=== PATIENT | male | born 1960 | race Caucasian/White ===

== ENCOUNTER 2019-05-17 17:17 | Outpatient (CLI) | payer OTHER, SELFPAY ==
[2019-05-17 17:42] LABS: Alanine Aminotransferase 35 U/L (4-50); Albumin Level 4.6 g/dL (3.5-5.1); Alkaline Phosphatase 68 U/L (38-126); Aspartate Amino Transferase 34 U/L (17-59); Bilirubin,Total 0.3 mg/dL (0.2-1.3); Blood Urea Nitrogen 17 mg/dL (9-20); Calcium 9.6 mg/dL (8.4-10.2); Carbon Dioxide 31 mmol/L (22-30); Chloride 100 mmol/L (98-107); Cholesterol 157 mg/dL (0-200); Estimated Glomerular Filt Rate > 60; Glucose 94 mg/dL (75-110); HDL Direct 31 mg/dL; Potassium 4.1 mmol/L (3.4-5.0); Sodium 140 mmol/L (137-145); Triglycerides 343 mg/dL (<150)
[2019-05-17 17:53] LABS: LDL Cholesterol Direct 84 mg/dL
== END 2019-05-17 17:18 | disposition home or self-care (01) ==
LOC: ANHLAB 17:19
PROVIDERS: PCP Family Medicine; Visit Provider Family Medicine
DX: E78.5 Hyperlipidemia, unspecified (principal)
CPT/HCPCS: 36415; 80053; 80061

== ENCOUNTER 2020-09-21 07:07 | Outpatient (CLI) | payer OTHER, SELFPAY ==
[2020-09-21 07:51] LABS: Basophils Absolute Auto 0.1 K/mm3 (0.0-0.1); Basophils Percent Auto 0.7 % (0.2-1.2); Eosinophils Absolute Auto 0.2 K/mm3 (0-0.3); Eosinophils Percent Auto 2.5 % (0-4.4); Hematocrit 40.8 % (42.0-52.0); Hemoglobin 13.8 g/dL (14.0-18.0); Immature Granulocyte Absolute 0.14 K/mm3 (0.00-0.031); Immature Granulocyte Percent A 1.7 % (0-0.5); Lymphocytes Absolute Auto 1.85 K/mm3 (0.9-3.2); Lymphocytes Percent Auto 22.2 % (18.3-44.2); Mean Corpuscular HGB Conc 33.8 g/dl (32-36); Mean Corpuscular Hemoglobin 31.1 pg (26-34); Mean Corpuscular Volume 91.9 fl (80-100); Mean Platelet Volume 11.6 fl (7.4-10.4); Monocytes Absolute Auto 0.8 K/mm3 (0.1-0.6); Monocytes Percent Auto 9.6 % (2.6-8.5); Neutrophils Absolute Auto 5.3 K/mm3 (1.3-6.7); Neutrophils Percent Auto 63.3 % (45.5-73.1); Platelet Count Result 222 k/mm3 (150-375); Red Blood Count 4.44 M/mm3 (4.6-6.20); Red Cell Distribution Width 12.1 % (11.5-14.5); White Blood Count 8.3 K/mm3 (4.5-10.0)
[2020-09-21 08:00] LABS: Alanine Aminotransferase 27 U/L (4-50); Albumin Level 4.4 g/dL (3.5-5.1); Alkaline Phosphatase 46 U/L (38-126); Anion Gap 11 mmol/L (8-16); Aspartate Amino Transferase 30 U/L (17-59); Bilirubin,Total 0.3 mg/dL (0.2-1.3); Blood Urea Nitrogen 16 mg/dL (9-20); Calcium 9.4 mg/dL (8.4-10.2); Carbon Dioxide 23 mmol/L (22-30); Chloride 107 mmol/L (98-107); Cholesterol 196 mg/dL (0-200); Estimated Glomerular Filt Rate > 60; Glucose 100 mg/dL (75-110); HDL Direct 33 mg/dL; Potassium 3.9 mmol/L (3.4-5.0); Sodium 141 mmol/L (137-145); Triglycerides 174 mg/dL (<150)
[2020-09-21 08:12] LABS: LDL Cholesterol Direct 107 mg/dL
[2020-09-21 08:32] LABS: Prostate Specific Antigen 0.9 ng/mL (< OR = 4.0)
== END 2020-09-21 07:08 | disposition home or self-care (01) ==
LOC: ANHLAB 07:12
PROVIDERS: PCP Family Medicine; Visit Provider Nurse Practitioner Family
DX: E78.5 Hyperlipidemia, unspecified (principal); Z12.5 Encounter for screening for malignant neoplasm of prostate
CPT/HCPCS: 36415; 80053; 80061; 84153; 85025; G0103

== ENCOUNTER 2021-02-11 01:30 | Day surgery (SDC) | payer OTHER, SELFPAY ==
[2021-01-28 14:32] VITALS: BMI 24.6
[2021-02-11 07:47] VITALS: BP 127/71; PULSE 60; RESP 18; TEMP 36.8; O2SAT 99
--- NOTE | 2021-02-11 07:56 | P.CONGI_ITS ---
Assessment and Plan Assessment and plan (1) Family history of colonic polyps: Code(s): Z83.71 - Family history of colonic polyps Status: Acute Assessment and Plan: Neoplasia screening advised because of patient's age. It is also significant his sister has been identified as having colon polyps. Screening colonoscopy to be performed today. Further recommendations will be given after endoscopy. GI Consult Note Consult date/time: 02/11/21 07:56 HPI: Sim Bhakta is a 60 year old male Presents for screening colonoscopy. Patient reports his current weight appetite bowel movements are normal. He denies abdominal pain. He has had no bleeding. Family history Is significant his sister was recently identified with colon polyps.. His last colonoscopy was more than 10 years ago. He presents today for neoplasia screening colonoscopy. Review of Systems Review of Systems: All systems reviewed & are unremarkable except as noted in HPI and below PMFSH Past Medical History Medical History Anxiety disorder, unspecified (~2018) Callus of foot (~2018) HLD (hyperlipidemia) (~2014) Wart (~2018) Surgical History Surgical History History of skin surgery S/P inguinal hernia repair (~1984) Social History Social History Smoking status: Never smoker Alcohol intake: current Alcohol use details: States that he may have a few beers q once in a while, but does not drink nightly Substance use: never Substance use type: marijuana Other substance usage details: recreational marijuana use on weekends Living arrangements: with friend(s) Additional living arrangements comments: lives with significant other Anita 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[employer]) Gender identity (if verbalized by the patient): Male Spiritual care concerns: No Agree to blood products: Yes Meds Home Medications and Allergies Home Medications Medication Instructions Recorded Confirmed Type atorvastatin 10 mg tablet 10 mg PO DAILY #90 tablet 09/24/20 01/31/21 Rx fenofibrate nanocrystallized 145 145 mg PO DAILY #90 tablet 09/24/20 01/31/21 Rx mg tablet hydroxyzine HCl 10 mg tablet 20 mg PO QHS PRN #30 tablet 10/24/20 01/31/21 Rx omeprazole magnesium [Prilosec OTC] 20 mg PO DAILY 01/28/21 01/31/21 History methylprednisolone 4 mg tablets in See Rx Instructions PO PER PKG DIR 01/31/21 01/31/21 Rx a dose pack #21 ea Allergies Allergy/AdvReac Type Severity Reaction Status Date / Time No Known Allergies Allergy Mild Verified 02/11/21 07:46 Vital Signs Vital Signs - 24 hr 02/11/21 07:47 Temperature 98.3 F Pulse Rate 60 Respiratory Rate 18 Blood Pressure 127/71 Pulse Oximetry 99 Exam Narrative: Physical exam reveals patient be alert. Vital signs stable. HEENT exam is unremarkable. Patient is anicteric. Lungs are clear to auscultation and percussion. Heart is without murmur or extra sounds. Abdominal exam bowel sounds are present soft nontender with no organomegaly. Digital external rectal exam is normal.
[2021-02-11] MEDS: LACTATED RINGERS 1,000 ML 150 ML IV CONT (07:58)
--- NOTE | 2021-02-11 08:26 | P.PNAN_ITS ---
Anes - Initial Pre Proc Eval Procedure: Operation Date: 02/11/21 08:30 Proposed Procedures p Screening Colonoscopy - David Guevara MD Date/Time: 02/11/21 08:26 Surgeon: David Guevara MD Pre Op Diagnosis: neoplasm screening Z12.11 Patient Data Age: 60 Gender: M Height: 1.78 m Weight: 75.3 kg Last Vital Signs Temp 98.3 F 02/11/21 07:47 Pulse 60 02/11/21 07:47 Resp 18 02/11/21 07:47 BP 127/71 02/11/21 07:47 Pulse Ox 99 02/11/21 07:47 Allergies Allergy/AdvReac Type Severity Reaction Status Date / Time No Known Allergies Allergy Mild Verified 02/11/21 07:46 Home Medications Medication Instructions Recorded Confirmed Type atorvastatin 10 mg tablet 10 mg PO DAILY #90 tablet 09/24/20 01/31/21 Rx fenofibrate nanocrystallized 145 145 mg PO DAILY #90 tablet 09/24/20 01/31/21 Rx mg tablet hydroxyzine HCl 10 mg tablet 20 mg PO QHS PRN #30 tablet 10/24/20 01/31/21 Rx omeprazole magnesium [Prilosec OTC] 20 mg PO DAILY 01/28/21 01/31/21 History methylprednisolone 4 mg tablets in See Rx Instructions PO PER PKG DIR 01/31/21 01/31/21 Rx a dose pack #21 ea Patient hx anesthesia problems: none Family hx anesthesia problems: none Results Review: All pre-operative results and documents have been reviewed as part of the pre-operative evaluation. [facility] Past Medical History Medical History Anxiety disorder, unspecified (~2018) Callus of foot (~2018) HLD (hyperlipidemia) (~2014) Wart (~2018) Surgical History Surgical History History of skin surgery S/P inguinal hernia repair (~1984) Social History Social History Smoking status: Never smoker Alcohol intake: current Alcohol use details: States that he may have a few beers q once in a while, but does not drink nightly Substance use: never Substance use type: marijuana Other substance usage details: recreational marijuana use on weekends Living arrangements: with friend(s) Additional living arrangements comments: lives with significant other Anita 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[employer]) Gender identity (if verbalized by the patient): Male Spiritual care concerns: No Agree to blood products: Yes Anes - Eval Final PreProcedure Day of Procedure 02/11/21 08:26 Patient weight: normal Heart: regular rate and rhythm Lungs: clear to auscultation Airway: Mallampati scale class II Neurological: alert and oriented Last oral intake: >/= 8 hours ASA classification: II Emergent: no Anesthetic plan: proceed Anesthesia type and monitoring: general GIVS and standard monitoring Results Review: All pre-operative results and documents have been reviewed as part of the pre-operative evaluation. Informed Consent: The patient's anesthetic plan and its attendant risks and benefits were discussed with the patient/family/POA. Questions were solicited and answers provided to the satisfaction of the patient/family/POA.
[2021-02-11 08:57] VITALS: BP 140/60; PULSE 58; RESP 20; O2SAT 99
[2021-02-11 09:07] VITALS: BP 130/73; PULSE 58; RESP 16; O2SAT 99
[2021-02-11 09:17] VITALS: BP 152/87; PULSE 61; RESP 14; O2SAT 99
== END 2021-02-11 09:25 | disposition home or self-care (01) ==
PROVIDERS: PCP Family Medicine; Visit Provider Internal Medicine Gastroenterology
PROC: 0DJD8ZZ Inspection of Lower Intestinal Tract, Via Natural or Artificial Opening Endoscopic (ICD-10-PCS; CPT 45378; principal; 2021-02-11 08:30)
DX: Z12.11 Encounter for screening for malignant neoplasm of colon (principal); K64.8 Other hemorrhoids; K57.30 Diverticulosis of large intestine without perforation or abscess without bleeding; K63.5 Polyp of colon; F41.9 Anxiety disorder, unspecified; E78.5 Hyperlipidemia, unspecified; F12.90 Cannabis use, unspecified, uncomplicated
CPT/HCPCS: 45385; 88305; J2704; J7120

== ENCOUNTER 2023-12-07 11:43 | Outpatient (CLI) | payer OTHER, SELFPAY ==
[2023-12-07 12:10] LABS: Basophils Absolute Auto 0.1 K/mm3 (0.0-0.1); Basophils Percent Auto 0.5 % (0.2-1.2); Eosinophils Absolute Auto 0.1 K/mm3 (0-0.3); Eosinophils Percent Auto 1.2 % (0-4.4); Hematocrit 40.4 % (42.0-52.0); Hemoglobin 14.2 g/dL (14.0-18.0); Immature Granulocyte Absolute 0.11 K/mm3 (0.00-0.031); Immature Granulocyte Percent A 1.1 % (0-0.5); Lymphocytes Absolute Auto 2.38 K/mm3 (0.9-3.2); Lymphocytes Percent Auto 23.2 % (18.3-44.2); Mean Corpuscular HGB Conc 35.1 g/dl (32-36); Mean Corpuscular Hemoglobin 31.8 pg (26-34); Mean Corpuscular Volume 90.4 fl (80-100); Mean Platelet Volume 11.6 fl (7.4-10.4); Monocytes Percent Auto 9.8 % (2.6-8.5); Neutrophils Absolute Auto 6.6 K/mm3 (1.3-6.7); Neutrophils Percent Auto 64.2 % (45.5-73.1); Platelet Count Result 202 k/mm3 (150-375); Red Blood Count 4.47 M/mm3 (4.6-6.20); White Blood Count 10.3 K/mm3 (4.5-10.0)
[2023-12-07 12:20] LABS: Alanine Aminotransferase 33 U/L (6-50); Albumin Level 4.5 g/dL (3.5-5.1); Alkaline Phosphatase 68 U/L (38-126); Anion Gap 12 mmol/L (4-12); Aspartate Amino Transferase 29 U/L (17-59); Bilirubin,Total 0.4 mg/dL (0.2-1.3); Blood Urea Nitrogen 15 mg/dL (9-20); Calcium 9.5 mg/dL (8.4-10.2); Carbon Dioxide 25 mmol/L (22-30); Chloride 100 mmol/L (98-107); Estimated Glomerular Filt Rate > 60; Glucose 112 mg/dL (65-110); Sodium 137 mmol/L (137-145)
== END 2023-12-07 11:44 | disposition home or self-care (01) ==
PROVIDERS: PCP Family Medicine; Visit Provider Family Medicine
DX: E78.5 Hyperlipidemia, unspecified (principal); Z01.810 Encounter for preprocedural cardiovascular examination
CPT/HCPCS: 36415; 80053; 85025

== ENCOUNTER 2023-12-29 07:56 | Outpatient (CLI) | payer OTHER, SELFPAY ==
[2023-12-29 08:30] LABS: Cholesterol 255 mg/dL (0-200); HDL Direct 31 mg/dL; Triglycerides 522 mg/dL (<150)
[2023-12-29 08:41] LABS: LDL Cholesterol Direct 115 mg/dL
== END 2023-12-29 07:57 | disposition home or self-care (01) ==
PROVIDERS: PCP Family Medicine; Visit Provider Internal Medicine Cardiovascular Disease
DX: E78.5 Hyperlipidemia, unspecified (principal)
CPT/HCPCS: 36415; 80061; 84443

== ENCOUNTER 2024-01-06 10:14 | Outpatient (CLI) | payer OTHER, SELFPAY ==
--- NOTE | ~2024-01-06 | NM_ITS ---
EXAMINATION: NM mel stress w perfusion DATE: 01/06/2024 12:20 INDICATION: Other forms of dyspnea TECHNIQUE: Rest images were obtained following intravenous administration of 10.3 mCi Tc99m tetrofosm in (Myoview). The patient was infused intravenously with Lexiscan (Regadenoson). Then, 33.6 mCi Tc99m tetrofosmin (Myoview) was administered intravenously, and stress images were obtained. Data was jacques nstructed into short axis and horizontal and vertical long axis SPECT images. Gated SPECT images were also obtained. COMPARISON: None. FINDINGS: There is no definite reversible or fixed perfusion abnormality to suggest ischemia or infar ction. There is normal left ventricular chamber size, wall motion and ejection fraction. Left ventr icular ejection fraction measures >70%. IMPRESSION: 1. Normal myocardial perfusion at rest and during stress. 2. Left ventricular ejection fraction measuring >70%. Reviewed, dictated and finalized at location B.
--- NOTE | 2024-01-06 10:27 | EST_ITS ---
Patient Info Name: Sim Bhakta Age: 63 years : 1960 Gender: Male Ht: 70 in Wt: 170 lbs BSA: 1.96 m2 HR: 59 bpm BP: 150 / 88 mmHg Exam Date: 01/06/2024 11:18 AM Exam Location: Echo Lab Patient Status: Outpatient Admit Date: 01/06/2024 Staff Ordering Physician: Jonathan Denise DO Attending Provider: Jonathan Denise DO Exercise Technologist: Julianna Moss RDCS Exercise Physician: Jonathan Denise DO Exam Type: CA stress mel w NM Study Info A regadenoson stress test was performed. Summary 1. 1. Negative lexiscan stress test for ischemic ST changes by ECG criteria. 2. 2. Baseline hypertension. 3. 3. Nuclear scan to follow and will be reported separately. Please correlate with it. 4. 4. Patient informed of the above results. Protocol: Lexiscan Stress ECG Details Stage: REST Duration (min): 6 min : 3 sec HR (bpm): 58 SBP (mmHg): 150 DBP (mmHg): 88 Stage: REST Duration (min): 9 min : 25 sec HR (bpm): 62 SBP (mmHg): 150 DBP (mmHg): 88 Stage: STAGE 1 Duration (min): 1 min : 0 sec HR (bpm): 95 SBP (mmHg): 126 DBP (mmHg): 88 Stage: RECOVERY Duration (min): 1 min : 0 sec HR (bpm): 92 SBP (mmHg): 126 DBP (mmHg): 88 Stage: RECOVERY Duration (min): 2 min : 0 sec HR (bpm): 88 SBP (mmHg): 126 DBP (mmHg): 88 Stage: RECOVERY Duration (min): 3 min : 0 sec HR (bpm): 78 SBP (mmHg): 159 DBP (mmHg): 88 Stage: RECOVERY Duration (min): 3 min : 8 sec HR (bpm): 80 SBP (mmHg): 159 DBP (mmHg): 88 Rest HR: 62 bpm Peak HR: 95 bpm Rest Sys BP: 150 mmHg Peak Sys BP: 159 mmHg Max Pred HR: 158 bpm % Max Pred HR: 60 % Target HR: 134 bpm Max RPP: 15,105 bpm*mmHg Termination Reason: Completed protocol Cardiac Symptoms: Shortness of breath Total Time: 1 min : 0 sec Rest Cristina BP: 88 mmHg Peak Cristina BP: 88 mmHg Total Dose: 0.4 mg Resting ECG Sinus rhythm, anteroseptal infarct, age indeterminate. Stress ECG No ST changes. Arrhythmias None. Report Signatures
--- NOTE | 2024-01-06 10:28 | ECHO_ITS ---
Patient Info Name: Sim Bhakta Age: 63 years : 1960 Gender: Male Ht: 70 in Wt: 170 lbs BSA: 1.96 m2 HR: 58 bpm BP: 150 / 88 mmHg Heart Rhythm: Sinus Rhythm Technical Quality: Fair Exam Date: 01/06/2024 10:57 AM Exam Location: Echo Lab Patient Status: Outpatient Admit Date: 01/06/2024 Staff Ordering Physician: Jonathan Denise DO Magazine Worker: Julianna Moss RDCS Attending Provider: Jonathan Denise DO Referring Physician: Howie POWERS; Exam Type: CA echo dop color flow w con Study Info Indications R06.09 - Other forms of dyspnea Complete two-dimensional, color flow and Doppler transthoracic echocardiogram is performed with contrast to opacify the left ventricle and to improve the deliniation of the left ventricle endocardial borders. Contrast/Agitated Saline Contrast/Ag. Saline: Definity Amount: 2.00 ml Administered By: Julianna Moss RDCS Existing IV Access: Yes IV Access Condition: patent with no signs of infiltration Summary 1. Definity contrast administered improved wall motion interpretation. 2. Left ventricular chamber dimension is normal. 3. Left ventricular systolic function is normal, estimated at 65-70%. 4. There is mild concentric increased left ventricular wall thickness. 5. The left ventricular diastolic function is abnormal. 6. E/e' 11 is mildly elevated. 7. The aortic valve is bicuspid. 8. There is severe aortic valve sclerosis. 9. There is moderate aortic valve stenosis with a peak velocity of 440.01 cm/s, mean gradient of 39 mmHg, and aortic valve area of 1.22 cm2. 10. There is mild mitral valve regurgitation. 11. No pulmonary hypertension, estimated pulmonary arterial systolic pressure is 21 mmHg. Left Ventricle E/e' 11 is mildly elevated. Definity contrast administered improved wall motion interpretation. Left ventricular chamber dimension is normal. Left ventricular systolic function is normal, estimated at 65-70%. There is mild concentric increased left ventricular wall thickness. The left ventricular diastolic function is abnormal. Right Ventricle Right ventricular systolic function is normal and with normal TAPSE 3.1 cm. Right ventricular chamber dimension is normal. Left Atria Left atrial chamber dimension is normal. Right Atria Right atrial chamber dimension is normal. Aortic Valve The aortic valve is bicuspid. There is severe aortic valve sclerosis. There is moderate aortic valve stenosis with a peak velocity of 440.01 cm/s, mean gradient of 39 mmHg, and aortic valve area of 1.22 cm2. There is no aortic valve regurgitation. Pulmonic Valve There is no pulmonic regurgitation. Mitral Valve There is no mitral valve stenosis. There is mild mitral valve regurgitation. Tricuspid Valve There is no tricuspid valve regurgitation. No pulmonary hypertension, estimated pulmonary arterial systolic pressure is 21 mmHg. Pericardium/Pleural There is no pericardial effusion. Inferior Vena Cava Normal inferior vena cava with >50% collapse upon inspiration consistent with normal right atrial pressure, 5 mmHg. Aorta The aortic root size at the sinus of Valsalva is normal. Left Ventricular Outflow Tract Name Value Normal LVOT 2D LVOT Diameter 1.99 cm LVOT Doppler
[2024-01-06] MEDS: PERFLUTREN LIPID MICROSPHERES 1.5 ML VIAL DILUTED TO 10 ML TOTAL VOLUME IV PUSH (13:00)
--- NOTE | 2024-01-06 13:17 | IVDEFINITY ---
Prior to administration of IV Definity the patient was educated on the risks and benefits of the imaging enhancing agent including potential adverse side effects. The patient verbalized understanding. Allergies were verified. No exclusion criteria were identified and at least one of the following inclusion criteria were met: 1) physician request, 2) patient technically difficult to image (per the [place] [employer] guidelines of two or more segments not discernable within the apical view), or 3) questionable left ventricular function. ?
== END 2024-01-06 10:15 | disposition home or self-care (01) ==
PROVIDERS: PCP Family Medicine; Visit Provider Internal Medicine Cardiovascular Disease
DX: Q23.1 Congenital insufficiency of aortic valve (principal); R06.09 Other forms of dyspnea; I34.0 Nonrheumatic mitral (valve) insufficiency
CPT/HCPCS: 78452; 93017; A9502; C8929; J2785; Q9957